=== PATIENT | female | born 1970 | race Caucasian/White ===

== ENCOUNTER 2022-07-09 13:43 | Emergency (ER) | payer OTHER, BC ==
[2022-07-09] MEDS ORDERED: Ketorolac Tromethamine 30 MG/ML VIAL ONE (14:35)
== END 2022-07-09 14:53 | disposition home or self-care (01) ==
LOC: CSHERS 13:43
DX: M25.562 Pain in left knee (principal); I10 Essential (primary) hypertension; X50.0XXA Overexertion from strenuous movement or load, initial encounter; Y92.512 Supermarket, store or market as the place of occurrence of the external cause; Z95.0 Presence of cardiac pacemaker
CPT/HCPCS: 96372; J1885